=== PATIENT | female | born 1990 | race Caucasian/White ===

== ENCOUNTER 2017-11-19 16:11 | Emergency (ER) | payer BC ==
[2017-11-19 17:36] VITALS: BP 119/81
--- NOTE | 2017-11-19 18:17 | UC ---
Complaint Female HPI - HPI Summary HPI Summary: Patient complains of burning with urination, increased urinary urge, increased urinary frequency 4 days. Also complains of hematuria starting today. History of chronic UTI. Denies fever, cough, sore throat, CP, SOB, N/V/D, abdominal pain, low back pain, change in BM, vaginal symptoms. Medical history is eczema. - History Of Current Complaint Chief Complaint: UCGU Stated Complaint: UTI Time Seen by Provider: 11/19/17 17:51 Hx Obtained From: Patient Hx Last Menstrual Period: nexplanon Onset/Duration: Gradual Onset Timing: Constant Severity Initially: Mild Severity Currently: Mild Pain Intensity: 2 Pain Scale Used: 0-10 Numeric Character: Burning Aggravating Factor(s): Urination Associated Signs And Symptoms: Positive: Negative - Allergies/Home Medications Allergies/Adverse Reactions: Allergies Allergy/AdvReac Type Severity Reaction Status Date / Time No Known Allergies Allergy Verified 11/19/17 17:37 Home Medications: Home Medications Cranberry Conc/C/Bacill Coag [Azo Cranberry Tablet] 11/19/17 [History] PMH/Surg Hx/FS Hx/Imm Hx - Surgical History Surgical History: None - Family History Known Family History: Positive: None - Social History Alcohol Use: Weekly Substance Use Type: None Smoking Status (MU): Never Smoked Tobacco Review of Systems Constitutional: Negative Skin: Negative Eyes: Negative ENT: Negative Respiratory: Negative Cardiovascular: Negative Gastrointestinal: Negative Genitourinary: Dysuria, Hematuria, Frequency, Urgency Motor: Negative Neurovascular: Negative Musculoskeletal: Negative Neurological: Negative All Other Systems Reviewed And Are Negative: Yes Physical Exam Triage Information Reviewed: Yes Appearance: Well-Appearing Vital Signs: Initial Vital Signs Temp 97.4 F 11/19/17 17:31 Pulse 71 11/19/17 17:31 Resp 16 11/19/17 17:31 BP 119/81 11/19/17 17:31 Pulse Ox 100 11/19/17 17:31 Vital Signs Reviewed: Yes Eye Exam: Normal ENT Exam: Normal Dental Exam: Normal Neck exam: Normal Respiratory Exam: Normal Cardiovascular Exam: Normal Abdominal Exam: Normal Musculoskeletal Exam: Normal Neurological Exam: Normal Psychological Exam: Normal Skin Exam: Normal Complaint Female Dx - Course Course Of Treatment: Patient complains of burning with urination, increased urinary urge, increased urinary frequency 4 days. Also complains of hematuria starting today. History of chronic UTI. Denies fever, cough, sore throat, CP, SOB, N/V/D, abdominal pain, low back pain, change in BM, vaginal symptoms. Medical history is eczema. Vital signs normal. History of recurrent UTIs. Physical exam unremarkable. Urinalysis positive. negative. Patient states Macrobid preferred antibiotic for chronic UTIs. Asked for urology referral as patient is new to the area. - Differential Dx/Diagnosis Provider Diagnoses: uti Discharge - Sign-Out/Discharge Documenting (check all that apply): Patient Departure All imaging exams completed and their final reports reviewed: No Studies - Discharge Plan Condition: Stable Disposition: HOME Prescriptions: Nitrofurantoin Macrocrystals* [Macrodantin 100 mg*] 100 mg PO BID 10 Days #20 cap Patient Education Materials: Urinary Tract Infection in Women (ED) Referrals: No Primary Care Phys,NOPCP [Primary Care Provider] - Adi Gaston MD [Medical Doctor] - Additional Instructions: Take antibiotics as directed. - Billing Disposition and Condition Condition: STABLE Disposition: Home - Attestation Statements Provider Attestation: I was available for consult. This patient was seen by the NITHIN. The patient was not presented to, seen by, or examined by me. -Anatoliy
== END 2017-11-19 18:50 | disposition home or self-care (01) ==
LOC: UCEAST 16:11
DX: N39.0 Urinary tract infection, site not specified (principal); R31.9 Hematuria, unspecified; Z87.440 Personal history of urinary (tract) infections
CPT/HCPCS: 81003; 84702; 87086; 99212; G0463

== ENCOUNTER 2018-10-02 16:33 | Observation (INO) | payer BC ==
--- NOTE | 2018-10-02 16:51 | ED ---
Palpitations / Dysrhythmia - HPI Summary HPI Summary: This pt is a 28 y/o female presenting to [facility] brought directly from the ICU for sudden onset of palpitations and lightheadedness. 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 She notes she also began to experience heart palpitations, characterized as fast, and feeling like passing out. Denies any pain associated with these symptoms. Patient went to tell another ICU nurse (Lana Tapia) and pt was brought immediately down to the ED. Lana states pt was flushed and clammy. Lana notes pt's pulse was fast and irregular. She reports she has never had this in the past. Pt sees Dr. Gaston for chronic UTIs. Her last two cultures were negative. She had a kidney US 2 days ago that was negative. LMP: pt is on Nexplanon. Denies any hx of heart problems. - History of Current Complaint Hx Obtained From: Patient Onset/Duration: Sudden Onset, Still Present Severity Initially: Severe Severity Currently: Mild Character: Fast, Irregular Aggravating: Nothing Alleviating: Nothing Associated Signs & Symptoms: Lightheadedness - Allergy/Home Medications Allergies/Adverse Reactions: Allergies Allergy/AdvReac Type Severity Reaction Status Date / Time No Known Allergies Allergy Verified 11/19/17 17:37 PMH/Surg Hx/FS Hx/Imm Hx Endocrine/Hematology History: Denies: Hx Diabetes Cardiovascular History: Denies: Hx Hypertension History: Reports: Other Problems/Disorders - chronic UTIs - Surgical History Surgical History: None Infectious Disease History: No Infectious Disease History: Denies: Traveled Outside the [place] in Last 30 Days - Family History Known Family History: Positive: Hypertension - father Negative: Diabetes - Social History Alcohol Use: Weekly Substance Use Type: Reports: Marijuana Smoking Status (MU): Never Smoked Tobacco Review of Systems Constitutional: Other - POSITIVE: flushed Negative: Fever Positive: Palpitations. Negative: Chest Pain Neurological: Other - POSITIVE: lightheadedness, shaky All Other Systems Reviewed And Are Negative: Yes Physical Exam - Summary Physical Exam Summary: Appearance: Well-appearing, Well-nourished, lying in bed comfortably Skin: Warm, dry, no obvious rash Eyes: sclera anicteric, no conjunctival pallor ENT: mucous membranes moist, pharynx appears normal Neck: Supple, nontender Respiratory: Clear to auscultation, no signs of respiratory distress Cardiovascular: Normal S1, S2. No murmurs. Normal distal pulses in tibial and radial bilaterally. Abdomen: Soft, nontender, normal active bowel sounds present Musculoskeletal: Normal, Strength/ROM Intact Neurological: A&Ox3, awake and alert, mentation is normal, speech is fluent and appropriate Psychiatric: affect is normal, does not appear anxious or depressed Triage Information Reviewed: Yes Vital Signs On Initial Exam: Initial Vitals Temp Pulse Resp BP Pulse Ox 97.8 F 89 20 170/95 99 10/02/18 16:38 10/02/18 16:38 10/02/18 16:38 10/02/18 16:38 10/02/18 16:38 Vital Signs Reviewed: Yes Diagnostics - Vital Signs Vital Signs Temp Pulse Resp BP Pulse Ox 10/02/18 16:38 97.8 F 89 20 170/95 99 - Laboratory Result Diagrams: 10/02/18 17:18 10/03/18 05:48 Lab Statement: Any lab studies that have been ordered have been reviewed, and results considered in the medical decision making process. - Radiology Chest XR Radiology Interpretation Completed By: ED Physician Summary of Radiographic Findings: No acute disease - EKG 16:40 Cardiac Rate: Tachycardia - at 100 bpm EKG Rhythm: Atrial Fibrillation Summary of EKG Findings: Sinus tachycardia at 100 bpm, P waves, QRS complex, and T waves are within normal limits, T waves and intervals are normal, no ischemic changes. This is a normal EKG. Course/Dx - Course Assessment/Plan: Pt is a 28 y/o female presenting to [facility] for sudden onset of palpitations and lightheadedness. 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 She notes she also began to experience heart palpitations, characterized as fast, and feeling like passing out. Denies any pain associated with these symptoms. Test results are unremarkable except for glucose of 124. EKG shows sinus tachycardia at 100 bpm. In the ED course the pt was given IV fluids. Discussed the case with Dr. Busch, hospitalist, who accepted the pt for admission. - Diagnoses Provider Diagnoses: Palpitations, Near syncope - Physician Notifications Discussed Care Of Patient With: Henrique Busch - hospitalist Time Discussed With Above Provider: 19:05 Instructed by Provider To: Admit As Inpatient Discharge - Sign-Out/Discharge Documenting (check all that apply): Patient Departure - Admit [place] [facility] All imaging exams completed and their final reports reviewed: No Patient Received Moderate/Deep Sedation with Procedure: No - Discharge Plan Condition: Stable Disposition: ADMITTED TO [facility] - Attestation Statements Document Initiated by Scribe: Yes Documenting Scribe: Teri Eisenberg Provider For Whom Scribe is Documenting (Include Credential): Storm Turner MD Scribe Attestation: ITeri, scribed for Storm Turner MD on 10/03/18 at 0717. Status of Scribe Document: Ready
[2018-10-02] MEDS: NS 0.9% 1000 ML** 2,000 ML IV ONE ×2 (17:07→17:08)
[2018-10-02 17:25] LABS: ABS Basophils 0.1 10^3/ul (0-0.2); ABS Eosinophils 0.3 10^3/ul (0-0.6); ABS Monocytes 0.5 10^3/ul (0-0.8); ABS Neutrophils 5.6 10^3/ul (1.5-7.7); Eosinophil % 3.1 %; Hematocrit 43 % (35-47); Hemoglobin 15.1 g/dL (12.0-16.0); Lymphocyte % 23.9 %; Mean Corpuscular HGB Conc 35 g/dL (31-36); Mean Corpuscular Hemoglobin 31 pg (27-31); Mean Corpuscular Volume 88 fL (80-97); Mean Platelet Volume 7.4 fL (7.4-10.4); Platelet Count 265 10^3/uL (150-450); Red Blood Count 4.94 10^6 /uL (3.70-4.87); Red Cell Distribution Width 13 % (10-15); White Blood Count 8.5 10^3/uL (3.5-10.8)
[2018-10-02 17:42] LABS: Albumin 4.5 g/dL (3.2-5.2); Albumin/Globulin Ratio 1.6 (1-3); BUN/Creatinine Ratio 17.6 (8-20); Calcium 9.4 mg/dL (8.6-10.3); EGFR African American 96.4 (>60); EGFR Non-African American 79.6 (>60); Globulin 2.8 g/dL (2-4); Magnesium 1.9 mg/dL (1.9-2.7); Total Bilirubin 0.4 mg/dL (0.2-1.0); Total Protein 7.3 g/dL (6.4-8.9)
[2018-10-02 18:05] LABS: Urine Appearance Clear; Urine Bilirubin Negative (Negative); Urine Blood Negative (Negative); Urine Color Colorless; Urine Glucose Negative (Negative); Urine Ketones Negative (Negative); Urine Nitrite Negative (Negative); Urine Protein Negative (Negative); Urine Specific Gravity 1.002 (1.010-1.030); Urine Urobilinogen Negative (Negative)
[2018-10-02 18:17] LABS: TSH (Thyroid Stimulating Horm) 1.83 mcIU/mL (0.34-5.60)
[2018-10-02 19:22] LABS: Potassium 3.7 mmol/L (3.5-5.0)
[2018-10-02] MEDS ORDERED: Acetaminophen TAB* 325 MG PO PRN (19:33)
[2018-10-02 20:28] LABS: HCG Pregnancy 0.17 mIU/mL
--- NOTE | 2018-10-02 23:01 | HP ---
CC: Dr. Gaston * HISTORY AND PHYSICAL: DATE OF ADMISSION: 10/02/18 PRIMARY CARE PROVIDER: None. OTHER PROVIDER: Dr. Gaston. ATTENDING PHYSICIAN: Dr. Henrique Busch (dictated by MIK Mcclelland). CHIEF COMPLAINT: Palpitations. HISTORY OF PRESENT ILLNESS: Ms. Pinto is a 28-year-old female with a past medical history of chronic UTIs only, for which she follows with Dr. Gaston. 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 She notes that approximately 2 days ago, she had hematuria and painful urination. Ultrasound and urine cultures were negative. She notes that she felt "off" yesterday and it worsened today. She was at work , feeling relatively well and all of a sudden developed palpitations and chest tightness that were intermittent for approximately 15 minutes. They were relieved when she lay flat for approximately 2 minutes, but then began again. She notes that they intensified until "it felt like my heart was coming out of my chest." She says that this lasted for minutes, but is unsure of how long this lasted. She denies chest pain throughout the whole event. She notes that after the event, she had shakes/tremors for approximately 10 minutes. She notes that she was shivering, but did not feel cold. This subsided and then the patient had 2 bouts of chest pressure for a couple of seconds each. This also dissipated and the patient is left feeling tired and "fuzzy" but denies palpitations, chest pressure. During this event with palpitations, she sought the advice of coworker, , RN, who noted that the patient was diaphoretic, flushed, then went pale. She also noted that the patient had an irregular heart rate. She was sent to the ER at this time. Throughout these events, the patient denies lightheadedness, dizziness, headache, shortness of breath, or chest pain, although she did note tightness or pressure. She denies recent history of cough, diarrhea, vomiting, but does note that she was experiencing hematuria, urinary retention, and a sensation of abdominal fullness or pressure in the suprapubic region. These have all subsided. While the ER, the patient received a full workup, which included blood work, which was within normal limits including a TSH, magnesium, and potassium, which are within normal limits. The patient also received an ECG, which showed tachycardia and chest x-ray, which has yet to be resulted. The patient received 2 L bolus of normal saline while in the ER. The hospitalist team was asked to evaluate the patient for admission. PAST MEDICAL HISTORY: Chronic UTI, follows with Dr. Gaston. PAST SURGICAL HISTORY: None. HOME MEDICATIONS: Nexplanon implant. ALLERGIES: No known drug allergies. FAMILY HISTORY: Father has hypertension, hyperlipidemia, bundle branch block. Family history negative for diabetes mellitus, cancer, CVA, cardiac arrhythmia. SOCIAL HISTORY: The patient denies current and former use of tobacco. She drinks approximately 3 alcoholic drinks per week. She uses marijuana recreationally, last use was 2 weeks ago. She lives with her , Lee. In the event that she is unable to make her own medical decision, she has appointed her , Lee Pinto, to be her surrogate decision maker. REVIEW OF SYSTEMS: A 10-point review of systems has been performed. All the pertinent positives and negatives are in the HPI. All other systems are negative. PHYSICAL EXAMINATION GENERAL: Ms. Pinto is a well-developed, well-nourished, normal weight, young white female, who is sitting up in bed. She is pleasant and cooperative. She is talkative. She does not appear anxious. She is currently in no discomfort. She is friendly and sociable. VITAL SIGNS: Temperature 97.8 temporal, heart rate 101, respiratory rate 24, oxygen saturation 98% on room air, blood pressure 128/87. HEENT: Normocephalic, atraumatic. PERRL, EOMI. Nonicteric sclerae. Hearing is grossly intact. The oral dentition is good. Oral mucous membranes are moist. There are no lesions. The pharynx is clear. RESPIRATORY: Symmetrical chest extension without use of accessory muscles. Lungs are clear to auscultation bilaterally without rhonchi, wheeze, or rubs. CARDIAC: Tachycardic rate and rhythm is regular. There is a faint systolic murmur heard. There are no rubs or gallops. There is no JVD. ABDOMEN: Flat. Bowel sounds in all quadrants. There is no tenderness to palpation. There is no suprapubic tenderness. There is no hepatosplenomegaly. MUSCULOSKELETAL: Full range of motion without pain or deformity. EXTREMITIES: Skin is warm and smooth bilaterally without clubbing, cyanosis, or edema. Radial and pedal pulses are palpable. NEUROLOGIC: The patient is awake. She is alert and oriented x3. She has no focal neurological deficits and she is able to move all of her extremities. DIAGNOSTIC STUDIES/LAB DATA: CBC within normal limits except for RBC 4.94. Chemistry within normal limits except for glucose 124, AST pending. Troponin negative x1. TSH 1.83. Beta hCG pending. ECG shows tachycardia with a rate of 100, rhythm is regular. Chest x-ray is pending. ASSESSMENT AND PLAN: Ms. Pinto is a 28-year-old female with past medical history of chronic urinary tract infection only, who presented to the ER today with complaints of palpitations. She was found to be tachycardic with regular rhythm. The patient will be admitted to observation for: 1. Palpitations. EKG within normal limits, but the patient states that palpitations had gone by this point. She is feeling better at this point, but does note a feeling of fatigue without palpitations or chest pressure. She will be admitted on the telemetry floor and monitored overnight. Her electrolytes are currently within normal limits. They will be rechecked in the morning. Echocardiogram has been ordered due to murmur noted on physical exam. 2. Chronic urinary tract infections. The patient does have a history of hematuria, urinary retention, and suprapubic pressure approximately 2 days ago. She notes that this has dissipated since then. She follows closely with Dr. Gaston. We will continue to monitor for any further workup. 3. FEN. The patient has been placed on a heart healthy diet, decaf okay. The patient has received 2 L fluid bolus. IV fluids will be held for the time being. 4. Codes status: Full code. 5. DVT prophylaxis: According to the DVT risk assessment, the patient scores 0 , placing her at low risk for DVT. TEDs have been ordered for this patient. TIME SPENT: Approximately 45 minutes was spent on this admission, greater than half of that time was spent with the patient and her obtaining history, performing physical, and reviewing the plan of care. The case has been reviewed with my attending, Dr. Busch, who is in agreement with plan of care. MIK RODRIGUEZ [id number]/[facility] #: [id number] [facility]INS HOSPITALJeff
[2018-10-03 06:51] LABS: BUN/Creatinine Ratio 17.1 (8-20); Calcium 8.6 mg/dL (8.6-10.3); EGFR African American 109.6 (>60); EGFR Non-African American 90.6 (>60); Potassium 3.7 mmol/L (3.5-5.0)
--- NOTE | 2018-10-03 08:37 | ECHO ---
*[facility]* [place] [address] Fax #: [phone] Transthoracic Echocardiogram Patient: Pako Pinto : 1990 Study Date: 10/03/2018 Age: 28 Gender: F HR: 66 bpm Height: 64 in /162.6 cm BSA: 1.57 m^2 Weight: 119.8 lb /54.4 kg BMI: 20.6 kg/m^2 *Panel Beater: * Jolynn Montiel [facility] *Referring Physician: * Meredith MooreReading Physician: * Vandana Simmons MD Indications: Murmur. History: Risk factors: Former tobacco use. Conclusions Summary: 1. Left ventricle: The cavity size is normal. Wall thickness is normal. Systolic function is normal. The estimated ejection fraction is 60-65%. 2. Mitral valve: There is mild regurgitation. 3. Tricuspid valve: There is physiologic regurgitation. 4. No previous echocardiogram available. Study data: Transthoracic echocardiogram. Procedure: Transthoracic echocardiography was performed. Image quality was good. Complete 2D, spectral Doppler, and color flow Doppler. Location: ICU Patient status: Inpatient. Patient room number: ICU-11. Rhythm: Normal sinus rhythm. Findings Left ventricle: The cavity size is normal. Wall thickness is normal. Systolic function is normal. The estimated ejection fraction is 60-65%. Wall motion is normal; there are no regional wall motion abnormalities. Left ventricular diastolic function parameters are normal. Right ventricle: The cavity size is normal. Systolic function is normal. Systolic pressure is within the normal range. Left atrium: The atrium is normal in size. Right atrium: The atrium is normal in size. Mitral valve: The leaflets are normal thickness. There is no evidence of stenosis. There is mild regurgitation. Aortic valve: The valve is trileaflet. The leaflets are normal thickness. There is no evidence of stenosis. There is no significant regurgitation. Tricuspid valve: The leaflets are normal thickness. There is no evidence of stenosis. There is physiologic regurgitation. Pulmonic valve: The leaflets are normal thickness. There is no evidence of stenosis. There is no significant regurgitation. Aorta: Aortic root: The aortic root is appears normal. Ascending aorta: The ascending aorta is appears normal. Aortic arch: The aortic arch is appears normal. Pericardium: There is no significant pericardial effusion. Pulmonary arteries: The main pulmonary artery is normal-sized. Systemic veins: Inferior vena cava: The vessel is normal in size. The respirophasic diameter changes are in the normal range (>= 50%). Measurements Left ventricle Value Ref Right atrium continued Value Ref LUCI, LAX 4.1 cm 3.8 - 5.2 SI dim, ES, A4C 4.5 cm 3.4 - 5.3 ESD, LAX 2.6 cm 2.2 - 3.5 Estimated RAP 3 mm Hg --------- FS, LAX 36 % PW, ED, LAX 0.8 cm 0.6 - 0.9 Aortic valve Value Ref FS 36 % 45 Carmine diam, ED 2.0 cm --------- PW, ED 0.8 cm 0.6 - 0.9 Peak v, S 1.37 m/sec --------- E', lat carmine, TDI 15.8 cm/sec >=10.0 VTI, S 26.8 cm -- ------- E/e', lat carmine, 6 Mean grad, S 3.0 mm Hg ----- ---- TDI Peak grad, S 8.0 mm Hg --------- E', med carmine, TDI 13.6 cm/sec >=7.0 LVOT/AV, VTI ratio 0.86 -- ------- E/e', med carmine, 7 TDI Mitral valve Value Ref E', avg, TDI 14.7 cm/sec Peak E 1.01 m/sec ----- ---- E/e', avg, TDI 7 <=14 Peak A 0.49 m/sec -- ------- Decel time 176 ms --------- LVOT Value Ref Peak grad, D 4.1 mm Hg --------- Peak minh, S 1.17 m/sec Peak E/A ratio 2.1 --------- VTI, S 23.0 cm Peak grad, S 5 mm Hg Pulmonic valve Value Ref Mean grad, S 3 mm Hg Peak v, S 0.88 m/sec --------- Peak grad, S 3.0 mm Hg --------- Ventricular septum Value Ref IVS, ED 0.9 cm 0.6 - 0.9 Aortic root Value Ref Root diam 2.7 cm <3.2 Right ventricle Value Ref LUCI, LAX 2.7 cm Ascending aorta Value Ref LUCI minor ax, 3.4 cm 1.9 - 3.5 AAo AP diam, S 2.6 cm --------- A4C mid Aortic arch Value Ref Left atrium Value Ref Arch diam 1.6 cm --------- AP dim, ES 3.20 cm 2.70 - 3.80 Decending aorta Value Ref ML dim, A4C 3.4 cm Avinash peak minh 1.22 m/sec --------- SI dim, A4C 4.5 cm Vol/bsa, ES, 1-p 26 ml/m^2 11 - 40 Inferior vena cava Value Ref A4C Diam 1.6 cm --------- Vol/bsa, ES, A/L 31 ml/m^2 16 - 34 Right atrium Value Ref SI dim, ES 4.5 cm 3.4 - 5.3 ML dim, ES, A4C 3.2 cm 2.6 - 4.4 Legend: (L) and (H) alan values outside specified reference range. Prepared and electronically signed by Vandana Simmons MD 10/03/2018 08:36
[2018-10-03 12:40] VITALS: BP 123/83
--- NOTE | 2018-10-03 12:51 | DS ---
CC: [facility] * DISCHARGE SUMMARY: DATE OF ADMISSION: 10/02/18 DATE OF DISCHARGE: 10/03/18 PRIMARY CARE PROVIDER: [facility]. ATTENDING PHYSICIAN: Arelis Ballesteros MD * (dictated by MIK Mcclelland) PRIMARY DIAGNOSIS: Palpitations. SECONDARY DIAGNOSIS: Chronic urinary tract infection. CONSULTATIONS WHILE IN THE HOSPITAL: None. PROCEDURES WHILE IN THE HOSPITAL: None. STUDIES WHILE IN THE HOSPITAL: Echocardiogram on 10/03/18. Summary: Left ventricle: The cavity size is normal. Wall thickness is normal. Systolic function is normal. The estimated ejection fraction is 60% to 65%. Mitral valve: There is mild mitral regurgitation. Tricuspid valve: There is physiologic regurgitation. DISCHARGE MEDICATIONS: New home medications: None. Continued home medications: Nexplanon implant. HISTORY OF PRESENT ILLNESS/HOSPITAL COURSE: Ms. 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 She was brought down by one of her coworkers who notes that the patient was diaphoretic and pale. The patient notes that the palpitations came on suddenly and occurred intermittently for approximately 15 minutes. They dissipated for a couple of minutes and then returned and intensified. During this time, she had no chest pain. Once the palpitations stopped, the patient had 2 bouts of chest pressure that lasted a couple of seconds each. After this, the patient notes she felt tired and fuzzy but all other symptoms had disappeared. The patient was admitted with tele monitoring placed. An echo was ordered for the following day. The patient had no events overnight. Echocardiogram was relatively benign. The patient had experienced no more symptoms since admission. She was offered Cardiology consult and possible event monitor placement but declined, preferring to follow up with [facility] if this occurs again. The patient did receive a full workup, which included blood work showing no electrolyte abnormalities, TSH was within normal limits as well. At the time of discharge, the patient denies chest pain, shortness of breath, cough, fever, chills, palpitations, lightheadedness, dizziness, presyncope/syncope. She denies diaphoresis. She denies abdominal pain, nausea , vomiting, diarrhea, or constipation. Ms. Pinto is stable for discharge to home. PHYSICAL EXAMINATION: Vital Signs: Temperature 98.1 temporal, heart rate 53, respiratory rate 12, oxygen saturation 98%, blood pressure 90/56. General: Ms. Pinto is a well-developed, well-nourished healthy young white female who is sitting up in bed. She is pleasant, cooperative, and in no acute distress. HEENT: Normocephalic, atraumatic. PERRL. Nonicteric sclerae. Hearing grossly intact. Oral mucous membranes are moist without lesions. The pharynx is clear. Neck: Thyroid not palpable. Cardiovascular: Regular rate and rhythm with S1 and S2 present without murmurs, rubs, clicks, or gallops. Pulmonary: Symmetrical chest expansion without use of accessory muscles. Lungs clear to auscultation bilaterally without rhonchi, wheezes, or rubs. Abdomen: Flat. Bowel sounds noted in all quadrants. The abdomen is soft. There is no tenderness to palpation. Musculoskeletal: Without pain or deformities. Extremities: Skin is warm and smooth bilaterally without clubbing, cyanosis, or edema. Neuro: The patient is awake. She is alert and oriented x3. She has no focal neurological deficits. She has steady gait without impairment. DISCHARGE PLAN: Ms. Pinto will be discharged home. CONDITION: Good. ACTIVITY: As tolerated. DIET: Regular. MEDICATIONS: No changes. EDUCATION: 1. Follow up with [facility] in 4 to 7 days to discuss recent admission. Clinic will call with appointment date and time. 2. Return to the ER or nearest hospital if symptoms reoccur including palpitations, lightheadedness, dizziness, chest pressure. 3. Return if you experience any chest pain/pressure, shortness of breath, dizziness, lightheadedness, loss of consciousness, high fevers, chills, night sweats, or any other concerning signs or symptoms. This is a summarized report of a complex medical history and hospital stay. For further details, please see the entire medical record. TIME SPENT: Approximately 35 minutes was spent on this discharge, greater than half that time was spent [id number] with the patient discussing discharge plans and instructions. MIK RODRIGUEZ [id number]/[facility] #: [id number] [facility] CENTERJeff
== END 2018-10-03 13:43 | disposition home or self-care (01) ==
LOC: ED 16:33 → ICU 19:33
PROVIDERS: ADMIT Internal Medicine; ATTEND Internal Medicine
DX: R00.2 Palpitations (principal); N39.0 Urinary tract infection, site not specified; R31.9 Hematuria, unspecified
CPT/HCPCS: 36415; 71046; 80048; 80053; 81003; 83735; 84443; 84484; 84702; 85025; 87641; 93005; 93306; 96360; 99284; G0378

== ENCOUNTER 2018-11-01 08:23 | Emergency (ER) | payer BC ==
--- OUTSIDE RECORDS SUMMARY | 2018-11-01 08:28 | XMS REPORT | Continuity of Care Document ---
:1990 External Reference #:[id number] Author Name Laura Moreno Care Team Providers Name Role Phone Estrada Ruiz MD Primary Care Physician Unavailable Payers Date Identification Numbers Payment Provider Subscriber Policy Number: [id number] BS Courtney Pinto PayID: [id number] [address] [address] [place] [address] Social History Type Date Description Comments Sex Unknown Tobacco Use Start: Unknown Patient has never smoked Smoking Status Reviewed: 10/17/18 Patient has never smoked Allergies, Adverse Reactions, Alerts Description No Known Drug Allergies Medications Active Medications SIG Qnty Indications Ordering Provider Date Nexplanon 68mg Unknown Implant Vital Signs Date Vital Result Comment 10/17/2018 10:03am Height 64.75 inches 5'4.75" Weight 119.38 lb Heart Rate 74 /min BP Systolic 121 mmHg BP Diastolic 83 mmHg Body Temperature 98.0 F O2 % BldC Oximetry 97 % BMI (Body Mass Index) 20.0 kg/m2 Procedures Date Code Description Status 10/03/2018 76226 ECHO Transthorasic Realtime 2D W Doppler & Color Flow Hosp Completed Encounters Type Date Location Provider Dx Diagnosis [facility] Urinary [facility] infection, site not specified [facility] 10[facility]02[facility]2018 9[facility],MIK Cramer N39.0 Urinary tract infection, site not specified Plan of Treatment 10/17/2018 - Estrada Ruiz MDR00.2 PalpitationsReferral:Michaelle Cosby MD, Cardiovsclr DiseaseFollow up:as needed.
[2018-11-01 08:31] VITALS: BP 123/80
--- NOTE | 2018-11-01 08:38 | UC ---
Ear Complaint HPI - HPI Summary HPI Summary: 28 yo female c/o plugged left ear last couple days, painful. Decreased hearing affected ear. [place]. + hx exzema. No fever / chills. No st / cp / palpitations. No GI issues. No rash. - History of Current Complaint Chief Complaint: UCEar Stated Complaint: PLUGGED PAINFUL EAR Time Seen by Provider: 11/01/18 08:27 Hx Obtained From: Patient Hx Last Menstrual Period: 10/28/18 ?: Yes Pain Intensity: 2 - Allergies/Home Medications Allergies/Adverse Reactions: Allergies Allergy/AdvReac Type Severity Reaction Status Date / Time No Known Allergies Allergy Verified 11/01/18 08:31 PMH/Surg Hx/FS Hx/Imm Hx Previously Healthy: Yes - Surgical History Surgical History: None - Family History Known Family History: Positive: None, Hypertension - father Negative: Cardiac Disease, Diabetes - Social History Alcohol Use: Weekly Substance Use Type: Marijuana Smoking Status (MU): Never Smoked Tobacco - Immunization History Most Recent Influenza Vaccination: 2018 Most Recent Pneumonia Vaccination: never Review of Systems All Other Systems Reviewed And Are Negative: Yes Constitutional: Positive: Negative Skin: Positive: Negative Eyes: Positive: Negative ENT: Positive: Other - see hpi Respiratory: Positive: Negative Cardiovascular: Positive: Negative Gastrointestinal: Positive: Negative Genitourinary: Positive: Negative Motor: Positive: Negative Neurovascular: Positive: Negative Musculoskeletal: Positive: Negative Neurological: Positive: Negative Psychological: Positive: Negative Is Patient Immunocompromised?: No Physical Exam Triage Information Reviewed: Yes Appearance: Well-Appearing, Well-Nourished Vital Signs: Initial Vital Signs Temp 98.1 F 11/01/18 08:28 Pulse 63 11/01/18 08:28 Resp 17 11/01/18 08:28 BP 123/80 11/01/18 08:28 Pulse Ox 100 11/01/18 08:28 Vital Signs Reviewed: Yes Eye Exam: Normal ENT Exam: Other ENT: Positive: Pharynx normal, Other - TM's Bilat dull, castaneda. L eac + red, swelling, with yellow white thick drainage. TM intact as visible Neck exam: Normal Neck: Positive: Supple, Nontender, No Lymphadenopathy Respiratory Exam: Normal Respiratory: Positive: Chest non-tender, Lungs clear, Normal breath sounds, No respiratory distress, No accessory muscle use Cardiovascular Exam: Normal Cardiovascular: Positive: RRR, No Murmur, Pulses Normal, Brisk Capillary Refill Abdominal Exam: Normal Abdomen Description: Positive: Nontender Musculoskeletal Exam: Normal Neurological Exam: Normal - grossly nonfocal (except expected left ear issues) Psychological Exam: Normal - nad Ear Complaint Course/Dx - Course Course Of Treatment: Reviewed coa / tx plan. Left ear irrigated per RN. Able to hear better. TM intact post irrigation. EAC mild red and swollen. Questions as posed answered to the best of my ability. - Differential Dx/Diagnosis Provider Diagnosis: Otitis media, Otitis externa Discharge - Sign-Out/Discharge Documenting (check all that apply): Patient Departure All imaging exams completed and their final reports reviewed: No Studies - Discharge Plan Condition: Stable Disposition: HOME Prescriptions: Amoxicillin/Clavulanate TAB* [Augmentin TAB 875*] 875 mg PO BID 10 Days #20 tab Ciprofloxacin/Hydrocortisone [Cipro Hc Otic Suspension] 3 drop OTIC TID #1 bottle Fluconazole [Diflucan 150 MG (NF)] 150 mg PO DAILY #2 tab Patient Education Materials: Antihistamine (By mouth), Ibuprofen (By mouth), Otitis Externa (ED), Ear Infection (ED) Referrals: Estrada Ruiz MD [Primary Care Provider] - Additional Instructions: Hydrate. Avoid swimming ([place], pool, hot tub) until symptoms are gone, and your ears have been rechecked. Seek medical attention for worse or new problems in the meantime. - Billing Disposition and Condition Condition: STABLE Disposition: Home
== END 2018-11-01 09:20 | disposition home or self-care (01) ==
LOC: UCEAST 08:23
DX: H66.92 Otitis media, unspecified, left ear (principal); H60.92 Unspecified otitis externa, left ear
CPT/HCPCS: 99213; G0463